=== PATIENT | female | born 1940 | race Caucasian/White ===

== ENCOUNTER 2019-01-01 05:22 | Emergency (ER) | payer MEDICARE ==
[~2019-01-01] VITALS: Ht 165.1 cm; Wt 72.1 kg
[2019-01-01 05:22] VITALS: BP_SYST 195
[~2019-01-01 05:22] MED LIST: ACET325C3 PO; ALBMDI INH; ASPI-859 PO; CALC-808 PO; DDA.1 PO; DICL100G19 TP; ERGO500020 PO; ESCI10TA PO; FAMO20TA8 PO; FLUT16SP16 NS; FURO-150 PO; LIP20 PO; LOSA50TA3 PO; METH113C20 TP; METO50TA16 PO; MULT-1089 PO; MV-M1TAB2 PO; OXYC-128 PO; POLY17PO4 PO; POTA10TA PO; PRED10TA PO; SENN8.6T19 PO; SYN50 PO
[2019-01-01 06:00] LABS: BASOPHILS # (AUTO) 0.1 K/uL (0.0-0.2); BASOPHILS % (AUTO) 1.2 % (0.0-2.0); EOSINOPHILS # (AUTO) 0.1 K/uL (0.0-0.4); EOSINOPHILS % (AUTO) 1.2 % (0.0-4.0); HEMATOCRIT 34.3 % (36-48); HEMOGLOBIN 11.9 g/dL (12.0-16.0); LYMPHOCYTES % (AUTO) 26.1 % (20.5-51.5); MEAN CORPUSCULAR HEMOGLOBIN 31 pg (27-31); MEAN CORPUSCULAR HGB CONC 35 % (32-36); MEAN CORPUSCULAR VOLUME 90 fL (79.0-98.0); MONOCYTES # (AUTO) 0.7 K/uL (0.0-1.0); MONOCYTES % (AUTO) 8.9 % (1.7-9.3); NEUTROPHILS # (AUTO) 4.7 K/uL (1.8-7.7); NEUTROPHILS % (AUTO) 62.6 % (40.0-70.0); PLATELET COUNT (AUTO) 172 K/uL (130-430); WHITE BLOOD COUNT (AUTO) 7.5 K/uL (4.8-10.8)
[2019-01-01] MEDS ORDERED: MORPHINE 4 MG/ML INJ. SYRINGE IVP ONE ×2 (06:15→08:15)
[2019-01-01 06:28] LABS: ANION GAP 10 (5-15); CALCIUM 8.1 mg/dL (8.4-11.0); GLUCOSE 77 mg/dL (70-99); POTASSIUM 3.6 mmol/L (3.5-5.1); UREA NITROGEN, BLOOD 14 mg/dL (8-21)
[2019-01-01 06:37] LABS: ALANINE AMINOTRANSFERASE 19 U/L (12-78); ASPARTATE AMINOTRANSFERASE 19 U/L (10-37); TOTAL BILIRUBIN 0.7 mg/dL (0.0-1.0)
[2019-01-01 06:39] LABS: SODIUM SERUM 116 mmol/L (136-145)
[2019-01-01 06:40] LABS: CHLORIDE 83 mmol/L (98-107)
[2019-01-01] MEDS ORDERED: NACL 0.9% 1,000 ML IV ONE (06:45)
[2019-01-01] MEDS ORDERED: CIPROFLOXACIN LACT 400 MG/D5W 200 ML IV ONE (08:00)
[2019-01-01 08:19] LABS: BILIRUBIN,URINE NEGATIVE (NEGATIVE); BLOOD, URINE 1+ (NEGATIVE); CLARITY/URINE SL CLOUDY (CLEAR); COLOR,URINE YELLOW (YELLOW); GLUCOSE,URINE NEGATIVE (NEGATIVE); KETONES,URINE NEGATIVE (NEGATIVE); LEUKOCYTE ESTERASE ,URINE 2+ (NEGATIVE); NITRITE, URINE NEGATIVE (NEGATIVE); PH,URINE 8.5 (5.0-8.0); PROTEIN URINE NEGATIVE (NEGATIVE); UROBILINOGEN,URINE 0.2 (0.2-1.0)
[2019-01-01 08:32] LABS: BACTERIA,URINE MODERATE /HPF (None Seen); RBC,URINE 0-3 /HPF (0-3); WBC,URINE 20-50 /HPF (0-3)
[2019-01-01 08:33] LABS: URINE AMORPHOUS PHOSPHATES 2+ /HPF (None Seen)
[2019-01-01 09:52] VITALS: BP_SYST 118
== END 2019-01-01 09:52 | disposition short-term general hospital (02) ==
LOC: SED 05:22
DX: S72.452A Displaced supracondylar fracture without intracondylar extension of lower end of left femur, initial encounter for closed fracture (principal); E23.2 Diabetes insipidus; I10 Essential (primary) hypertension; Z88.1 Allergy status to other antibiotic agents; Z88.2 Allergy status to sulfonamides; Z88.8 Allergy status to other drugs, medicaments and biological substances; Z79.899 Other long term (current) drug therapy; W01.0XXA Fall on same level from slipping, tripping and stumbling without subsequent striking against object, initial encounter; Y93.89 Activity, other specified; Y92.89 Other specified places as the place of occurrence of the external cause; Y99.8 Other external cause status
CPT/HCPCS: 36415; 71045; 72170; 73552; 73564; 80053; 81000; 84295; 84484; 85025; 85379; 87040; 87086; 87186; 96365; 96375; 96376; 99285; J0744; J2270; J7030

== ENCOUNTER 2019-01-23 08:20 | Emergency (ER) | payer MEDICARE ==
[~2019-01-23] VITALS: Ht 167.6 cm; Wt 86.2 kg
[~2019-01-23 08:20] MED LIST changes: -ACET325C3 PO; -ALBMDI INH; -ASPI-859 PO; -CALC-808 PO; -DICL100G19 TP; -FAMO20TA8 PO; -FLUT16SP16 NS; -FURO-150 PO; -LIP20 PO; -METH113C20 TP; -MULT-1089 PO; -MV-M1TAB2 PO; -OXYC-128 PO; -POLY17PO4 PO; -SENN8.6T19 PO
--- NOTE | 2019-01-23 08:26 | NUR ---
Patient to ER bed 5 to gown for evaluation. Side rails up. Report given to Henrry TURNER.
[2019-01-23 08:27] VITALS: BP_SYST 139
--- NOTE | 2019-01-23 08:30 | NUR ---
ER Dr. Rodrigez at bedside examining patient.
--- NOTE | 2019-01-23 08:36 | NUR ---
Patient was brought in by EMS from [facility]. Patient states she was carrying a heavy bag and fell over on to her right side. Patient is complaining of sharp right shoulder pain 9/10. Patient deneis nausea and vomiting.
[2019-01-23] MEDS ORDERED: HYDROcodone/ACETAMIN 5-325 MG TAB (NORCO/ VICODIN) PO ONE (08:45)
[2019-01-23 09:01] LABS: BASOPHILS % (AUTO) 0.5 % (0.0-2.0); EOSINOPHILS # (AUTO) 0.1 K/uL (0.0-0.4); EOSINOPHILS % (AUTO) 0.7 % (0.0-4.0); HEMATOCRIT 34.3 % (36-48); HEMOGLOBIN 11.7 g/dL (12.0-16.0); LYMPHOCYTES # (AUTO) 1.3 K/uL (1.0-5.5); MEAN CORPUSCULAR HEMOGLOBIN 32 pg (27-31); MEAN CORPUSCULAR HGB CONC 34 % (32-36); MEAN CORPUSCULAR VOLUME 94 fL (79.0-98.0); MONOCYTES # (AUTO) 0.8 K/uL (0.0-1.0); MONOCYTES % (AUTO) 9.3 % (1.7-9.3); NEUTROPHILS # (AUTO) 6.1 K/uL (1.8-7.7); NEUTROPHILS % (AUTO) 73.5 % (40.0-70.0); PLATELET COUNT (AUTO) 221 K/uL (130-430); RED BLOOD CELL COUNT(AUTO) 3.66 MIL/uL (4.2-6.2); RED CELL DISTRIBUTION WIDTH 15.5 % (9.0-15.0); WHITE BLOOD COUNT (AUTO) 8.3 K/uL (4.8-10.8)
[2019-01-23 09:12] LABS: ANION GAP 1 (5-15); CALCIUM 8.9 mg/dL (8.4-11.0); CHLORIDE 92 mmol/L (98-107); CREATININE 0.88 mg/dL (0.55-1.30); GLUCOSE 82 mg/dL (70-99); POTASSIUM 3.9 mmol/L (3.5-5.1); SODIUM SERUM 126 mmol/L (136-145); UREA NITROGEN, BLOOD 24 mg/dL (8-21)
[2019-01-23 09:17] LABS: ALANINE AMINOTRANSFERASE 26 U/L (12-78); ALBUMIN 3.2 g/dL (3.4-4.8); ASPARTATE AMINOTRANSFERASE 19 U/L (10-37); PROTHROMBIN TIME 10.2 SECS (9.5-12.5); TOTAL BILIRUBIN 0.7 mg/dL (0.0-1.0)
[2019-01-23] MEDS ORDERED: NACL 0.9% 1,000 ML IV ONE (09:30)
[2019-01-23] MEDS ORDERED: MEPERIDINE HCL/PF 100 MG/ML AMP IM ONE (11:00)
--- NOTE | 2019-01-23 11:12 | NUR ---
No Vistaril in Pyxis. Notified Aracely in pharmacy, she stated she would bring it down.
--- NOTE | 2019-01-23 11:13 | NUR ---
Per Aracely in pharmacy, Vistaril has not been carried for years. Dr. Rodrigez notified and he verbalized understanding.
[2019-01-23] MEDS ORDERED: ONDANSETRON 4 MG ODT TAB PO ONE (11:30)
[2019-01-23 12:45] VITALS: BP_SYST 128
--- NOTE | 2019-01-23 12:45 | NUR ---
Patient given written and verbal discharge instructions and verbalizes understanding. ER MD discussed with patient the results and treatment provided. Patient in stable condition. ID arm band removed. IV catheter removed intact and dressing applied, no active bleeding. Rx of norco given. Patient educated on pain management and to follow up with PMD. Pain Scale 0/10. Opportunity for questions provided and answered. Medication side effect fact sheet provided.
== END 2019-01-23 12:45 | disposition home or self-care (01) ==
LOC: SED 08:20
DX: S42.291A Other displaced fracture of upper end of right humerus, initial encounter for closed fracture (principal); I10 Essential (primary) hypertension; Z88.1 Allergy status to other antibiotic agents; Z88.2 Allergy status to sulfonamides; Z88.8 Allergy status to other drugs, medicaments and biological substances; Z79.899 Other long term (current) drug therapy; W19.XXXA Unspecified fall, initial encounter; Y93.89 Activity, other specified; Y92.89 Other specified places as the place of occurrence of the external cause; Y99.8 Other external cause status
CPT/HCPCS: 36415; 71045; 73030; 80053; 83880; 84484; 85025; 85610; 93005; 96372; 99284; J2175; J3410; J7030; Q0162; 99283

== ENCOUNTER 2019-03-20 14:03 | Emergency (ER) | payer MEDICARE ==
[~2019-03-20] VITALS: Ht 162.6 cm; Wt 81.6 kg
[2019-03-20 14:10] VITALS: BP_SYST 156
--- NOTE | 2019-03-20 14:10 | NUR ---
Patient to ER bed 4 to gown for evaluation. Side rails up.
--- NOTE | 2019-03-20 14:15 | NUR ---
Pt bib EMS c/o CP resolved w/NTG . ASA 324mg given at residence.Pt has no c/o CP upon arrival.
--- NOTE | 2019-03-20 14:20 | NUR ---
ER at bedside examining patient.
[2019-03-20] MEDS ORDERED: ASPIRIN 81 MG TAB.CHEW PO ONE (14:30)
--- NOTE | 2019-03-20 15:20 | NUR ---
PT denies CP or SOB at this time
[2019-03-20 15:23] LABS: BASOPHILS # (AUTO) 0.1 K/uL (0.0-0.2); BASOPHILS % (AUTO) 0.8 % (0.0-2.0); HEMATOCRIT 37.9 % (36-48); HEMOGLOBIN 12.7 g/dL (12.0-16.0); LYMPHOCYTES # (AUTO) 1.3 K/uL (1.0-5.5); LYMPHOCYTES % (AUTO) 11.4 % (20.5-51.5); MEAN CORPUSCULAR HEMOGLOBIN 33 pg (27-31); MEAN CORPUSCULAR HGB CONC 34 % (32-36); MEAN CORPUSCULAR VOLUME 97 fL (79.0-98.0); MONOCYTES # (AUTO) 0.9 K/uL (0.0-1.0); MONOCYTES % (AUTO) 7.8 % (1.7-9.3); PLATELET COUNT (AUTO) 197 K/uL (130-430); RED BLOOD CELL COUNT(AUTO) 3.89 MIL/uL (4.2-6.2); RED CELL DISTRIBUTION WIDTH 14.9 % (9.0-15.0); WHITE BLOOD COUNT (AUTO) 11.2 K/uL (4.8-10.8)
[2019-03-20 15:29] LABS: ANION GAP 5 (5-15); CALCIUM 9.3 mg/dL (8.4-11.0); CHLORIDE 101 mmol/L (98-107); CREATININE 1.06 mg/dL (0.55-1.30); GLUCOSE 124 mg/dL (70-99); POTASSIUM 3.4 mmol/L (3.5-5.1); SODIUM SERUM 136 mmol/L (136-145); UREA NITROGEN, BLOOD 21 mg/dL (8-21)
[2019-03-20 15:41] LABS: ALANINE AMINOTRANSFERASE 25 U/L (12-78); ALBUMIN 3.2 g/dL (3.4-4.8); ASPARTATE AMINOTRANSFERASE 23 U/L (10-37); TOTAL BILIRUBIN 0.4 mg/dL (0.0-1.0)
[2019-03-20] MEDS ORDERED: LORazepam 1 MG TABLET PO ONE (15:45)
--- NOTE | 2019-03-20 16:20 | NUR ---
Pt has no acute distress noted,
[2019-03-20] MEDS ORDERED: IBUPROFEN 600 MG TABLET PO ONE (16:30)
[2019-03-20 17:45] VITALS: BP_SYST 152
--- NOTE | 2019-03-20 17:45 | NUR ---
Patient given written and verbal discharge instructions and verbalizes understanding. ER MD discussed with patient the results and treatment provided. Patient in stable condition. ID arm band removed. No Rx given. Patient educated on pain management and to follow up with PMD. Pain Scale 0. Opportunity for questions provided and answered. Medication side effect fact sheet provided.
== END 2019-03-20 17:45 | disposition home or self-care (01) ==
LOC: SED 14:03
DX: R07.9 Chest pain, unspecified (principal); I10 Essential (primary) hypertension; E11.9 Type 2 diabetes mellitus without complications; Z88.1 Allergy status to other antibiotic agents; Z88.8 Allergy status to other drugs, medicaments and biological substances; Z79.899 Other long term (current) drug therapy
CPT/HCPCS: 36415; 71045; 80053; 82550-TC; 83880; 84484; 85025; 93005; 99284

== ENCOUNTER 2019-04-05 22:13 | Emergency (ER) | payer MEDICARE ==
[~2019-04-05] VITALS: Ht 157.5 cm; Wt 72.6 kg
[2019-04-05 22:15] VITALS: BP_SYST 104
--- NOTE | 2019-04-05 22:33 | NUR ---
Pt BIB ambulance .Patient triaged and placed in [facility]. VSS and patient appears in no acute distress at this time. Accompanied by , awaiting available bed, and MD notified of need for MSE.
--- NOTE | 2019-04-05 22:45 | NUR ---
Pt is an 78 y/o female from [facility] bib ambulance for c/o acute onset of SOB for 3 days. Staff members were saying that she was acting more disoriented that usual which prompted her to come to the ED. Pt denies n/v fevers, chills, recent fall or other complaints. Will cont to monitor pt.
--- NOTE | 2019-04-05 22:50 | NUR ---
ER Dr. Cameron at bedside examining patient.
[2019-04-05 23:31] LABS: BASOPHILS % (AUTO) 0.4 % (0.0-2.0); EOSINOPHILS # (AUTO) 0.1 K/uL (0.0-0.4); EOSINOPHILS % (AUTO) 1.1 % (0.0-4.0); HEMATOCRIT 37.4 % (36-48); HEMOGLOBIN 12.5 g/dL (12.0-16.0); LYMPHOCYTES # (AUTO) 0.7 K/uL (1.0-5.5); LYMPHOCYTES % (AUTO) 5.8 % (20.5-51.5); MEAN CORPUSCULAR HEMOGLOBIN 32 pg (27-31); MEAN CORPUSCULAR HGB CONC 33 % (32-36); MEAN CORPUSCULAR VOLUME 97 fL (79.0-98.0); MONOCYTES # (AUTO) 0.9 K/uL (0.0-1.0); MONOCYTES % (AUTO) 6.9 % (1.7-9.3); NEUTROPHILS # (AUTO) 10.5 K/uL (1.8-7.7); NEUTROPHILS % (AUTO) 85.8 % (40.0-70.0); PLATELET COUNT (AUTO) 160 K/uL (130-430); RED BLOOD CELL COUNT(AUTO) 3.86 MIL/uL (4.2-6.2); RED CELL DISTRIBUTION WIDTH 14.7 % (9.0-15.0); WHITE BLOOD COUNT (AUTO) 12.3 K/uL (4.8-10.8)
[2019-04-05 23:39] LABS: ANION GAP 11 (5-15); CALCIUM 8.8 mg/dL (8.4-11.0); CHLORIDE 97 mmol/L (98-107); GLUCOSE 70 mg/dL (70-99); SODIUM SERUM 131 mmol/L (136-145); UREA NITROGEN, BLOOD 31 mg/dL (8-21)
[2019-04-05 23:42] LABS: INR 1.2 (0.8-1.2); PROTHROMBIN TIME 11.6 SECS (9.5-12.5)
[2019-04-05 23:43] LABS: ALANINE AMINOTRANSFERASE 27 U/L (12-78); ALBUMIN 2.6 g/dL (3.4-4.8); ASPARTATE AMINOTRANSFERASE 42 U/L (10-37); TOTAL BILIRUBIN 1.1 mg/dL (0.0-1.0)
[2019-04-06 00:10] LABS: CKMB RELATIVE INDEX 2.3 (0.0-2.9); CREATINE KINASE MB 6.6 ng/mL (0-3.6)
--- NOTE | 2019-04-06 01:16 | NUR ---
In n out cath performed for urine. Moderate amount of yellow urine collected. Pt tolerated well, will cont to monitor pt.
[2019-04-06 01:21] LABS: BILIRUBIN,URINE 2+ (NEGATIVE); BLOOD, URINE 2+ (NEGATIVE); CLARITY/URINE CLEAR (CLEAR); COLOR,URINE YELLOW (YELLOW); GLUCOSE,URINE NEGATIVE (NEGATIVE); KETONES,URINE 1+ (NEGATIVE); LEUKOCYTE ESTERASE ,URINE NEGATIVE (NEGATIVE); NITRITE, URINE NEGATIVE (NEGATIVE); PROTEIN URINE TRACE (NEGATIVE); UROBILINOGEN,URINE 0.2 (0.2-1.0)
[2019-04-06 01:32] LABS: BACTERIA,URINE FEW /HPF (None Seen); WBC,URINE 0-3 /HPF (0-3)
--- NOTE | 2019-04-06 02:15 | NUR ---
Pt in bed with eyes closed resting comfortably. No signs of acute distress or discomfort.
[2019-04-06] MEDS ORDERED: NACL 0.9% 1,000 ML IV ONE (03:30)
--- NOTE | 2019-04-06 04:10 | NUR ---
Pt in bed with eyes closed resting comfortably. No signs of acute distress or discomfort. VSS. Will cont to monitor pt.
--- NOTE | 2019-04-06 04:44 | NUR ---
Patient to be transferred to [facility]. Is being transferred due to higher level of care. Receiving facility has accepting physician and available space. ER physician has signed transfer form. Patient or responsible constitution party has agreed to transfer and signed form. Patient belongings inventoried and will be sent with patient. Copy of nursing notes, lab reports, EKG, Physicians Orders and X-rays to be sent with patient. Report called to RN at receiving facility. Receiving physician is Dr Portillo. Ambulance service has been called for transfer. ETA is [id number].
[2019-04-06 05:40] VITALS: BP_SYST 156
--- NOTE | 2019-04-06 05:40 | NUR ---
[facility] here to transfer pt to [facility]. Report given at beside using SBAR format. No signs of acute distress or discomfort noted. Pt left in gurney, IV site patent and benign.
== END 2019-04-06 05:40 | disposition short-term general hospital (02) ==
LOC: SED 22:13
DX: R06.02 Shortness of breath (principal); R94.31 Abnormal electrocardiogram [ECG] [EKG]; I10 Essential (primary) hypertension; E11.9 Type 2 diabetes mellitus without complications; Z88.1 Allergy status to other antibiotic agents; Z88.8 Allergy status to other drugs, medicaments and biological substances; Z79.899 Other long term (current) drug therapy
CPT/HCPCS: 36415; 71045; 73030; 80053; 81000; 82550; 82553; 83605; 83735; 83880; 84484; 85025; 85379; 85610; 85730; 87040; 87086; 93005; 99285; J7030